=== PATIENT | female | born 1970 | race Caucasian/White ===

== ENCOUNTER 2020-09-26 17:27 | Emergency (ER) | payer MEDICAID ==
[~2020-09-26] VITALS: Ht 157.5 cm; Wt 66.2 kg
[2020-09-26 18:01] VITALS: BP 156/75
--- NOTE | 2020-09-26 18:06 | NUR ---
EMT AT BEDSIDE FOR EKG
[2020-09-26 18:58] LABS: BASOPHILS # (AUTO) 0.1 K/uL (0.00-0.22); BASOPHILS % (AUTO) 0.8 % (0.0-2.0); EOSINOPHILS # (AUTO) 0.2 K/uL (0-0.4); EOSINOPHILS % (AUTO) 2.1 % (0.0-4.0); HEMATOCRIT 40.9 % (36-48); HEMOGLOBIN 13.6 g/dL (12.0-16.0); LYMPHOCYTES # (AUTO) 2.6 K/uL (2.5-16.5); LYMPHOCYTES % (AUTO) 34.9 % (20.5-51.1); MEAN CORPUSCULAR HEMOGLOBIN 30 pg (27-31); MEAN CORPUSCULAR HGB CONC 33 g/dL (33-37); MEAN CORPUSCULAR VOLUME 89.5 fL (80-94); MONOCYTES # (AUTO) 0.5 K/uL (0.8-1.0); MONOCYTES % (AUTO) 6.2 % (1.7-9.3); NEUTROPHILS # (AUTO) 4.2 K/uL (1.8-7.7); PLATELET COUNT (AUTO) 288 K/uL (140-450); RED BLOOD CELL COUNT(AUTO) 4.57 MIL/uL (4.20-5.40); RED CELL DISTRIBUTION WIDTH 13.4 % (11.6-13.7); WHITE BLOOD COUNT (AUTO) 7.5 K/uL (4.8-10.8)
--- NOTE | 2020-09-26 19:04 | NUR ---
Pt ambulated to ER bed 1 with a steady gait.
[2020-09-26 19:17] LABS: ANION GAP 10.3 (8-16); CARBON DIOXIDE 28.5 mmol/L (21-32); CREATININE 0.9 mg/dL (0.6-1.3); POTASSIUM 3.8 mmol/L (3.5-5.1); TOTAL BILIRUBIN 0.2 mg/dL (0.0-1.0)
--- NOTE | 2020-09-26 19:20 | NUR ---
PT. IS A 50 Y/O FEMALE THAT CAME INTO ED WITH C/O OF CHEST PAIN. PT. STATES IT STARTED ON SATURDAY WITH DESCRIPTION OF "PRESSURE" ON HER CHEST. PT. RATES PAIN 7/10 ON THE PAIN SCALE. DENIES N/V/D. SKIN IS PINK/WARM/DRY; AAOX4 WITH EVEN AND STEADY GAIT; HR EVEN AND REGULAR; PT DENIES ANY FEVER, CP, SOB, OR COUGH AT THIS TIME; VSS; PATIENT POSITIONED FOR COMFORT IN SUPINE POSITION; HOB ELEVATED; BEDRAILS UP X2; BED DOWN. ER MD MADE AWARE OF PT STATUS. PMH: DENIES ALLERGIES: CALEB
--- NOTE | 2020-09-26 19:20 | NUR ---
GAVE REPORT TO MARGARITA SCHAEFFER. TRANSFER OF CARE GIVEN
--- NOTE | 2020-09-26 19:25 | NUR ---
JOSE DAVID COOMBS AT BEDSIDE.
[2020-09-26] MEDS ORDERED: IBUPROFEN 600 MG TAB PO ONE (19:40)
--- NOTE | 2020-09-26 19:40 | NUR ---
PT. STATES NO MORE PAIN IN CHEST. PT. LAYING COMFORTABLY IN SUPINE POSITION, VOICES NO COMPLAINTS.
[2020-09-26] MEDS ORDERED: IBUP-2213 PO (19:53)
[2020-09-26 19:59] VITALS: BP 156/75
== END 2020-09-26 19:59 | disposition home or self-care (01) ==
LOC: MED 17:27
DX: R07.89 Other chest pain (principal); Z79.899 Other long term (current) drug therapy; Z98.890 Other specified postprocedural states
CPT/HCPCS: 36415; 71045; 80053; 83880; 84484; 85025; 85610; 85730; 93005; 99285